=== PATIENT | male | born 1985 | race Caucasian/White ===

== ENCOUNTER 2018-08-22 00:39 | Emergency (ER) | payer SELFPAY | END 2018-08-22 04:40 | disposition home or self-care (01) | LOC: FTE 00:39 | DX: L02.212 Cutaneous abscess of back [any part, except buttock and flank] (principal); F17.210 Nicotine dependence, cigarettes, uncomplicated | CPT/HCPCS: 99283 ==

== ENCOUNTER 2019-06-14 21:26 | Emergency (ER) | payer SELFPAY | END 2019-06-15 00:56 | disposition left against medical advice (07) | LOC: FTE 06-15 00:56 | DX: Z53.21 Procedure and treatment not carried out due to patient leaving prior to being seen by health care provider (principal) ==